=== PATIENT | male | born 1995 | race Caucasian/White ===

== ENCOUNTER 2019-01-20 20:19 | Emergency (ER) | payer OTHER ==
[2019-01-20] MEDS ORDERED: IBUPROFEN 200 MG TAB PO ONE (20:33)
--- NOTE | 2019-01-20 20:37 | EDPHY ---
General Time Seen by Provider: 01/20/19 20:33 Narrative: CLINICAL IMPRESSION: Left shoulder and scapula pain ASSESSMENT/PLAN: Patient is a 23-year-old male who presents with complaint of left shoulder and scapula pain after wrestling with 1 of his friends yesterday evening. Patient is nontoxic-appearing, he is in no acute distress on arrival. Shoulder and scapula x-ray reveals no evidence of acute bony abnormality or AC separation. There was no evidence of acute fracture, dislocation, compartment syndrome, AC separation, rib fracture, pneumothorax or neurovascular compromise. His history and physical examination is most consistent with acute left shoulder pain, likely shoulder strain. The patient was placed in a sling. He was given ibuprofen and will otherwise continue Tylenol and ibuprofen at home. Patient was incidentally found to have a nonspecific apical pleural thickening on his x-ray, I discussed this with the the patient and he understands the importance of following up with a primary care provider. He does not have a primary care provider, I gave him a list of referrals. I also gave him a referral for orthopedic surgery, he will call this week to schedule follow-up. Return precautions discussed-patient to return to the emergency Department for significantly worsening or uncontrolled pain, significant swelling, numbness or tingling of the extremity, paleness or coolness of his digits, fever or for any other concerning symptom. The patient verbalizes understanding and she is in agreement with this plan. DIFFERENTIAL DX: Shoulder pain differential including but not limited to and in no particular order fracture, dislocation, rotator cuff injury, strain, contusion ED COURSE: 2111: Case discussed with Dr. Carter, we reviewed x-ray. Findings suggestive of possible small AC separation, awaiting final read. 2134: Case discussed with radiologist, no acute findings including evidence of an AC separation. CHIEF COMPLAINT: Left clavicle, shoulder and scapula pain HPI: Patient is a 23-year-old male with no significant medical history who presents to the emergency department with complaints of left clavicle, left shoulder and left scapula pain. Patient reports last evening he was wrestling with a friend , his friend to come to the ground causing him to land directly on his left shoulder. He does not have pain all the time, only with certain movements. Patient does report limited range of motion secondary to discomfort. He denies any previous injury to this shoulder. He took ibuprofen earlier today with mild relief. He denies any numbness or tingling of the extremity. He denies any neck or back pain. He denies any chest wall pain, abdominal pain or shortness of breath. He denies any other injury or complaint. PAST MEDICAL HISTORY: Denies Pertinent Past Surgical History: Denies Family History: Not contributory Social History: Occasional alcohol, denies cigarette smoking or illicit drug use ROS: A full 10 point review of systems was negative except for those mentioned in HPI. PHYSICAL EXAM: General Appearance: Alert, oriented, appropriate, cooperative, NAD, well hydrated, non-toxic appearing, VSS, no hypoxia. HEENT: TMs are clear bilaterally no perforation or FB, no injection, no evidence of serous or mucopurulent otitis. Oropharynx clear is no erythema or exudates, no tonsillar hypertrophy or asymmetry. Dentition without abnormality. Eyes: PERRLA, no acute vision change, nystagmus, swelling, discharge, pain or photosensitivity. Conjunctiva pink, no pallor or injection Respiratory: There are no retractions, lungs are clear to auscultation. No chest wall tenderness or evidence of trauma. Cardiac: Regular rate and rhythm, no murmurs or gallops. Gastrointestinal: Abdomen is soft, nontender, bowel sounds normal, no masses/ hernia, no rigidity, guarding or focal peritoneal findings. Skin: Warm, dry, no rashes, no nodules on palpation. Upper Extremities: Mild left mid clavicle tenderness, no obvious deformity. There is an abrasion overlying the superior aspect of the shoulder. Patient has generalized left shoulder tenderness to palpation. Left scapula is tender along the superior margin, no ecchymosis, abrasions or deformity. No increased warmth on palpation. No obvious deformity, abrasions, ecchymosis. No atrophy or asymmetry compared to opposite side. Limited ROM to flexion/extension/abduction/adduction, pain elicited with all movement. 2+ radial pulses with capillary refill < 2 seconds. 5/5 strength at fingers, wrist, elbow. Resisted wrist extension (radial nerve): normal. Resisted thumb opposition ( median nerve): normal. Resisted finger abduction (ulnar nerve): normal. Sensation intact throughout. Neck: FROM intact to flexion/extension/rotational movement. No midline tenderness. No step-off or deformity. Back: No step-off, palpable bony abnormality, edema, erythema or ecchymosis of the cervical, thoracic or lumbar spines. Thoracic and lumbar spines with no midline or paraspinal muscle tenderness to palpation. Full range of motion of all spines. 5/5 and equal strength of the UEs and LEs bilaterally including shoulder shrug ( except right shoulder as mentioned above). Pulses: 2+ and equal radial, DP and PT pulses bilaterally. Sensation intact and symmetric to light touch from face, UEs and LEs bilaterally. MEDICAL DECISION MAKING: Patient was seen independently. Secondary supervising physician at time of evaluation was Dr. Carter, he did not evaluate this patient. Diagnosis: Left shoulder pain. New, requires workup Summary: See Assessment and Plan for summary of ED visit Clinical lab tests: Not applicable. Independent visualization of images, tracing, or specimens: Yes. Decision to obtain medical records or history from someone other than the patient: No Review / Summarize previous medical records: Yes Discussed patient with another provider: Yes, Dr. Carter Patient Progress: Stable, discharged. - History Smoking Status: Never smoked - Objective Vital Signs: Initial Vital Signs Temperature (C) 36.8 C 01/20/19 20:21 Heart Rate 90 01/20/19 20:21 Respiratory Rate 16 01/20/19 20:21 Blood Pressure 154/76 H 01/20/19 20:21 O2 Sat (%) 97 01/20/19 20:21 O2 Delivery Mode Room Air Allergies/Adverse Reactions: No Known Allergies Allergy (Unverified 01/20/19 20:23) Home Medications: Medication Instructions Recorded NK [No Known Home Meds] 01/20/19 Medications Given: Discontinued Medications Ibuprofen (Motrin) 400 mg PO EDNOW ONE Stop: 01/20/19 20:34 Last Admin: 01/20/19 20:43 Dose: 400 mg Departure - Departure Disposition: Home, Routine, Self-Care Clinical Impression: Shoulder pain, acute Condition: Good Instructions: Shoulder Pain (ED) Additional Instructions: DISCHARGE INSTRUCTIONS FROM YOUR DOCTOR Thank you for visiting our emergency department today. Please keep in mind that discharge from the emergency department does not mean that there is nothing wrong - it simply means that we have not identified an emergency condition that requires further evaluation or treatment in the hospital. You should always plan to follow up with primary care for re-evaluation of your condition in the next 2-3 days. You were noted to have some mild thickening of the pleura of your left lung, this is very nonspecific however should be followed up by your primary care provider. Rest, no heavy lifting, pushing, pulling, carrying with the affected arm. Apply ice on and off to the painful area, whichever feels better. Wear the sling as applied on and off as needed. Gentle range of motion exercises several times daily to prevent your shoulder from stiffening up -- pendulum exercises as we discussed. Avoid prolonged immobilization as we discussed as shoulder injuries are prone to "frozen shoulder" which is a significant complication and requires intensive physical therapy to rehabilitate. For pain control: You may take Tylenol, I recommend 500-1000 mg every 6-8 hours as needed. Take with food and a full glass of water. Stop taking if this is upsetting her stomach. Do not exceed 4000 mg in a 24 hr period. You may also take ibuprofen, recommend 400 mg every 6 hr. Take with food and a full glass of water. Stop taking if this upsets her stomach. Do not exceed 2400 mg in a 24 hr period. Continue your regular medication as prescribed. Call and schedule with a primary care provider for a follow-up appointment and to establish care for your primary care needs. Return for increased or unmanageable pain, inability to move the shoulder or neck, fever, chills, redness, warmth, swelling, numbness, tingling or weakness of the arm, loss of investigation officer strength, coolness of the fingertips, chest pain, shortness of breath, or for any other new, worsening or worrisome symptoms. People present with illnesses and injuries in different ways, and it is always possible that we have missed something. You may always return for re-evaluation if symptoms worsen or if they are not improving or if you develop new/different symptoms. Again, thank you for choosing our emergency department. We hope that you feel better. Referrals: Myra Camacho MD [Medical Doctor] - As per Instructions (Please establish care with a primary care provider if you do not already have 1) Dillon Apodaca MD [Medical Doctor] - 2-3 days, call for appt. [facility] Mena,. [Clinic] - 2-3 days, call for appt.
[2019-01-20 21:52] VITALS: BP 136/96
== END 2019-01-20 21:52 | disposition home or self-care (01) ==
DX: M25.512 Pain in left shoulder (principal)
CPT/HCPCS: A4565